=== PATIENT | male | born 1995 | race Caucasian/White ===

== ENCOUNTER 2017-09-01 13:34 | Emergency (ER) | payer BC ==
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
[2017-09-01] MEDS ORDERED: CEPHALEXIN 500 MG CAP PO ONE (14:40)
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
[2017-09-01 16:00] VITALS: BP 130/75
== END 2017-09-01 16:19 | disposition home or self-care (01) ==
PROC: 0HQKXZZ Repair Right Lower Leg Skin, External Approach (ICD-10-PCS; principal; 2017-09-01)
DX: S81.811A Laceration without foreign body, right lower leg, initial encounter (principal); S20.419A Abrasion of unspecified back wall of thorax, initial encounter; S90.811A Abrasion, right foot, initial encounter; S90.812A Abrasion, left foot, initial encounter; S90.414A Abrasion, right lesser toe(s), initial encounter; S90.415A Abrasion, left lesser toe(s), initial encounter; W17.89XA Other fall from one level to another, initial encounter; Y92.89 Other specified places as the place of occurrence of the external cause; Y99.8 Other external cause status; Y93.89 Activity, other specified